=== PATIENT | female | born 1995 | race African-American/Black ===

== ENCOUNTER 2021-11-29 17:27 | Emergency (ER) | payer MEDICAID ==
[~2021-11-29] VITALS: Ht 162.6 cm; Wt 78.0 kg
[2021-11-29] MEDS ORDERED: ACETAMINOPHEN 325MG TABLET PO PRN (20:15)
[2021-11-29 20:49] LABS: BASOPHILS % 0.3 % (0.0-2.0); EOSINOPHILS % 3.6 % (0.0-5.0); HEMATOCRIT. 29.7 % (36.0-48.0); HEMOGLOBIN. 9.4 g/dL (12.0-16.0); MEAN CORPUSCULAR HEMOGLOBIN 22.8 pg (28.0-32.0); MEAN CORPUSCULAR VOLUME 72.2 fL (81.0-99.0); MEAN PLATELET VOLUME 8.3 fl (7.4-10.4); MONOCYTES % 10.6 % (2.0-8.0); NEUTROPHILS % 63.5 % (40.0-76.0); PLATELET 366 x1000/uL (130-400); RED BLOOD CELL COUNT 4.11 mill/uL (4.2-5.4); RED CELL DISTRIBUTION WIDTH 17.6 % (11.6-14.6)
[2021-11-29 21:00] LABS: CHLORIDE 108 mEq/L (98-107)
[2021-11-29 21:10] LABS: B-HCG QUANTITATIVE < 1 mIU/mL (<3)
[2021-11-29 22:46] VITALS: BP 122/86
== END 2021-11-29 22:52 | disposition home or self-care (01) ==
LOC: ER 17:27
DX: N93.9 Abnormal uterine and vaginal bleeding, unspecified (principal); Z98.890 Other specified postprocedural states
CPT/HCPCS: 36415; 76830; 76856; 80053; 81025; 84702; 85025; 86850; 86900; 99284

== ENCOUNTER 2023-03-28 23:41 | Emergency (ER) | payer MEDICAID, OTHER ==
[~2023-03-28] VITALS: Ht 162.6 cm; Wt 86.6 kg
[2023-03-28 23:55] VITALS: BP 110/68; PULSE 84; RESP 18; TEMP 98.3; O2SAT 98
[2023-03-29] MEDS ORDERED: P20 MT (01:24)
[2023-03-29] MEDS ORDERED: HYDR-4622 TP (01:24)
[2023-03-29] MEDS ORDERED: B50 MT (01:24)
== END 2023-03-29 02:19 | disposition home or self-care (01) ==
LOC: ER 23:41
DX: T78.40XA Allergy, unspecified, initial encounter (principal); Z98.890 Other specified postprocedural states; X58.XXXA Exposure to other specified factors, initial encounter
CPT/HCPCS: 99281

== ENCOUNTER 2024-04-05 10:44 | Emergency (ER) | payer SELFPAY ==
[~2024-04-05] VITALS: Ht 175.3 cm; Wt 78.0 kg
[~2024-04-05 10:44] MED LIST: B50 MT; HYDR-4622 TP; P20 MT
[2024-04-05 10:49] VITALS: BP 115/79; PULSE 89; RESP 16; O2SAT 98
[2024-04-05] MEDS ORDERED: ACETAMINOPHEN 325MG TABLET PO ONE (11:00)
[2024-04-05 12:15] VITALS: TEMP 98.1
[2024-04-05] MEDS: ACETAMINOPHEN 325MG TABLET PO NR (12:15)
[2024-04-05] MEDS ORDERED: TOPUD PO (12:23)
== END 2024-04-05 14:00 | disposition home or self-care (01) ==
LOC: ER 11:01
DX: M79.602 Pain in left arm (principal); M79.601 Pain in right arm; H11.32 Conjunctival hemorrhage, left eye; R51.9 Headache, unspecified
CPT/HCPCS: 70486; 73090; 99284